=== PATIENT | female | born 1990 | race Caucasian/White ===

== ENCOUNTER 2023-07-21 19:40 | Emergency (ER) | payer OTHER, SELFPAY ==
[2023-07-21 19:44] VITALS: BP 131/89
[2023-07-21 20:00] VITALS: BP 125/86; BMI 32.6
--- NOTE | 2023-07-21 20:21 | ED.GENMED ---
History of Present Illness
General
Chief Complaint: Anxiety
Source: patient
Exam Limitations: none
Time Seen by Provider: 07/21/23 19:57
Travel History
Have you had any contact with someone who has COVID-19?: No
Do you have any symptoms of coronavirus? Fever > 100 degrees, chills, cough, shortness of breath, sore throat, loss of taste or smell, muscle aches, or headache?: No
History of Present Illness
History of Present Illness:
This is a 33 year old female that comes in with c/o panic attack. States that for the a past few days she has been having panic attacks. States that she wants to get off the Prozac as it has interaction with Xanax and Propranolol. State sthat she is
afraid to take them as she saw that they have an interaction with Prozac. States that she has not been eating, has chest tightness and her nausea. State that she also had a headache. Denies any fever, chills, SOB, abd pain, vomiting, diarrhea,
dizziness, urinary burning.
Past History
Past History
ED Past Medical History: None, Psychiatric (Anxiety, OCD, ) and Other (Esophageal food impaction)
ED Past Surgical History: Other (Pilonidal cyst)
Social History
Tobacco: Former smoker
Alcohol: None
Personal: Single
Living: with family
Review of Systems
Review of Systems
All Other Systems: ROS reviewed and negative except as documented in HPI and ROS
Constitutional: Reports no symptoms; Denies fever or chills
EENT: Reports no symptoms
Respiratory: Denies cough or trouble breathing
Cardiac: Reports chest pain (Tightness)
ABD/GI: Reports nausea; Denies abdominal pain, vomiting or diarrhea
: Reports no symptoms
Musculoskeletal: Reports no symptoms
Skin: Reports no symptoms
Neurological: Reports headache; Denies dizzy
Psychiatric: Reports anxiety
Phy Exam
General Physical Exam
General Presentation: no apparent distress
General age: appears stated age
General Skin: warm and dry
General Habitus: normal
General Mental: anxious and tearful
General Hydration: appears well hydrated
ENT Exam
ENT Exam: TM's normal, pharynx normal and neck supple
Eye Exam
Eye Exam: EOMI
Cardiovascular Exam
Cardiovascular Exam: regular rate/rhythm, no edema, no murmur and normal peripheral pulses
Pulmonary Exam
Pulmonary Exam: lungs clear, no respiratory distress, no rales, chest non tender, no crackles, no rhonchi, no wheezing and no cough
Gastrointestinal Exam
Gastrointestinal Exam: normal bowel sounds, non tender, soft, no organomegaly, no pulsatile mass and non distended
Musculoskeletal Exam
Musculoskeletal Exam: full ROM and no edema
Skin Exam
Skin Exam: normal color, warm/dry, no rash and no petechia
Psychiatric Exam
Psychiatric Exam: anxious
Course
Orders/Labs/Results
Orders:
Orders
07/21/23 20:28
Alprazolam [Xanax] 0.5 mg PO NOW STA
Vital Signs
Initial and Last Documented VS:
Initial Vital Signs
Temp Pulse Resp BP Pulse Ox
98.1 F 77 20 131/89 99
07/21/23 19:44 07/21/23 19:44 07/21/23 19:44 07/21/23 19:44 07/21/23 19:44
Last Documented Vital Signs
Temp Pulse Resp BP Pulse Ox
98.1 F 77 20 125/86 98
07/21/23 19:44 07/21/23 19:44 07/21/23 19:44 07/21/23 20:00 07/21/23 20:00
MDM/Problems Addressed
Differential Diagnosis Includes:
Anxiety, Panic attack
MDM/Problems Addressed:
This is a 33 year old female that comes in with c/o having panic attacks. States that she is afraid to take her Xanax as this has an interaction with her Prozac. States that she wants to get off the Prozac and today she cut the dose in half as
directed by her Pharmacist and only took 10mg.
Explained to patient that she can use the Xanax with the Prozac as she would not have been prescribed these medication if her provider felt that they would interact. Will give patient Xanax here and watch patient.
back into see patient. Patient is feeling much better. Explained that she can use her Xanax with the Prozac as needed. Patient to return with any conerns.
Chronic conditions affecting care: Psychiatric illness
Acute Exacerbation and/or Progression of Chronic Illness: Psychiatric illness
*Pulse Oximetry
Patient hypoxic: no
*EKG
Interpreted by ED Provider?: NA
Rate: EKG- N/A
*Township Supervisor Interpretation
Rate: Township Supervisor- N/A
*Critical Care Note
Total Time (30-74mins, 75-104mins- exclusive of procedures): Not Applicable
ED Attending Note
-
Portions of this chart may have been created with voice recognition software.� Occasional wrong word or��sound alike� substitutions may have occurred due to the inherent limitations of voice recognition software.
Discharge Plan
Departure
Patient Disposition: Home (Routine Discharge)
Date of Disposition: 07/21/23
Time of Disposition: 21:51
Patient with high blood pressure during this ER visit?: No
Condition: Good
Covid-19: Not Applicable
Discharge Problem:
Panic disorder, Anxiety
Instructions: Anxiety, Adult (DC), Panic Disorder (DC)
Prescriptions:
No Action
prednisone 20 MG tablet
40 mg PO DAILY Qty: 8 0RF
Activity Restrictions/Additional Instructions:
As discussed, you are ok to use the Xanax and your Prozac. They would not have been prescribed if there was concern for interaction. Please increase your water intake to 8-8oz glasses daily. Follow up with the family doctor and your Psychiatrist for
further evaluation. IF YOU HAVE ANY OTHER CONCERNS PLEASE RETURN TO THE EMERGENCY ROOM.
Interventions
Interventions:
*Risk Screen - Suicide Last Done: 07/21/23 19:44
*General Assessment Last Done: 07/21/23 19:44
*Neglect/Abuse Screening Last Done: 07/21/23 19:44
ED- Fall Risk Assessment Last Done: 07/21/23 19:44
*ED COVID-19 Vaccine History Last Done: 07/21/23 19:44
ED-Psychological Assessment Last Done: 07/21/23 20:00
Discharge Date and Time
Print Language: MONTENEGRIN
[2023-07-21] MEDS: XANAX 0.5 MG PO (20:31)
[2023-07-21 21:00] VITALS: BP 108/70
== END 2023-07-21 22:02 | disposition home or self-care (01) ==
LOC: EMR 19:40
PROVIDERS: EMERGENCY PHYSICIAN Emergency Medicine; FAMILY PHYSICIAN Family Medicine
DX: F41.0 Panic disorder [episodic paroxysmal anxiety] (principal); F41.9 Anxiety disorder, unspecified; Z87.891 Personal history of nicotine dependence
CPT/HCPCS: 99283